=== PATIENT | male | born 1980 | race Caucasian/White ===

== ENCOUNTER 2020-06-08 14:31 | Emergency (ER) | payer OTHER, SELFPAY ==
--- NOTE | ~2020-06-08 | CT_ITS ---
EXAMINATION: CT abdomen pelvis wo con DATE: 06/08/2020 15:52 INDICATION: Hematuria. History kidney stones. TECHNIQUE: Computed tomography (CT) of the abdomen and pelvis was performed without intravenous contr ast. Automated exposure control and iterative reconstruction technique were employed. Exam dose: 182 .08 mGy-cm total exam DLP. COMPARISON: None. FINDINGS: The lung bases are clear of infiltrate or consolidation. Normal heart size. No pericardial or pleural effusion. Fat-containing left foramen of Bochdalek hernia. The liver, gallbladder, bile ducts, spleen, pancreas and pancreatic duct are unremarkable. Normal mor phology of the adrenal glands. No suspicious renal space-occupying mass lesion is evident on this limited noncontrast examination. There is a 3 mm left ureterovesical junction calculus with minimal left hydroureteronephrosis. No other urinary tract calculus or right hydroureteronephrosis. Normal caliber of the abdominal aorta. No intraperitoneal or retroperitoneal or pelvic mass lesion or adenopathy or ascites. The urinary bladder and prostate gland are unremarkable. No evidence of appendicitis. No bowel obstruction, bowel wall thickening, pneumatosis or intraperiton eal free air. Degenerative disc disease and posterior spurring at L5-S1. No suspicious osteolytic or osteoblastic l esions are noted. IMPRESSION: 3 mm left ureterovesical junction calculus with minimal left hydroureteronephrosis Reviewed, dictated and finalized at [facility]. Reviewed, dictated and finalized at [facility]. IMPRESSION: 3 mm left ureterovesical junction calculus with minimal left hydro ureteronephrosis
[2020-06-08 14:34] VITALS: BP 153/98; PULSE 82; RESP 18; TEMP 36.6; O2SAT 99
[2020-06-08 15:19] LABS: Basophils Absolute Auto 0.1 K/mm3 (0.0-0.1); Hematocrit 45.2 % (42.0-52.0); Hemoglobin 15.2 g/dL (14.0-18.0); Immature Granulocyte Absolute 0.01 K/mm3 (0.00-0.031); Immature Granulocyte Percent A 0.1 % (0-0.5); Lymphocytes Absolute Auto 2.31 K/mm3 (0.9-3.2); Lymphocytes Percent Auto 27.9 % (18.3-44.2); Mean Corpuscular HGB Conc 33.6 g/dl (32-36); Mean Corpuscular Hemoglobin 30.2 pg (26-34); Mean Corpuscular Volume 89.7 fl (80-100); Mean Platelet Volume 9.5 fl (7.4-10.4); Monocytes Absolute Auto 0.5 K/mm3 (0.1-0.6); Monocytes Percent Auto 6.4 % (2.6-8.5); Neutrophils Absolute Auto 5.3 K/mm3 (1.3-6.7); Neutrophils Percent Auto 64.6 % (45.5-73.1); Platelet Count Result 258 k/mm3 (150-375); Red Blood Count 5.04 M/mm3 (4.6-6.20); Red Cell Distribution Width 12.5 % (11.5-14.5); White Blood Count 8.3 K/mm3 (4.5-10.0)
[2020-06-08 15:29] LABS: Anion Gap 5 mmol/L (8-16); Blood Urea Nitrogen 12 mg/dL (9-20); Calcium 9.3 mg/dL (8.4-10.2); Carbon Dioxide 31 mmol/L (22-30); Chloride 103 mmol/L (98-107); Estimated CRCL calculation 93 ml/min; Estimated Glomerular Filt Rate > 60; Glucose 129 mg/dL (75-110); Potassium 3.4 mmol/L (3.4-5.0); Sodium 139 mmol/L (137-145)
[2020-06-08 16:14] LABS: Add Urine Microscopic? YES; Appearance Urine Cloudy (Clear); Bacteria Urine Trace /hpf; Bilirubin Urine Negative (Negative); Blood Urine 3+ (Negative); Color Urine Yellow (Yellow); Glucose Urine UA Negative (Negative); Ketones Urine Negative (Negative); Leukocyte Esterase Ur Negative LEU/UL (Negative); Mucus Urine Few /lpf; Nitrate Urine Negative (Negative); Protein Urine 2+ mg/dL (Negative); RBC Urine >75 /hpf (0-2); WBC Urine 0-3 /hpf
--- NOTE | 2020-06-08 16:26 | ED.MALEGU ---
HPI - Male Genitourinary General Chief complaint: Urogenital-Male Stated complaint: hematuria Time Seen by Provider: 06/08/20 14:46 History of Present Illness HPI Narrative: Patient is a 39-year-old male who presents ER with hematuria. Began abruptly today. No pain. No urinary frequency or urgency. Has history of kidney stones. Patient reports there is possible he could have sexual transmitted infection due to outside infidelity. He reports that it occurred back in December when he found out about it. He has not had any symptoms after that and is not having any testicular pain or penile discharge at this time. Patient denies any fevers chills or sweats/nausea/vomiting. Related Data Allergies Allergy/AdvReac Type Severity Reaction Status Date / Time No Known Allergies Allergy Verified 06/08/20 14:37 Review of Systems Review of Systems: All systems reviewed & are unremarkable except as noted in HPI and below Constitutional: Constitutional: Denies chills, Denies fever(s) and Denies weakness Respiratory: Respiratory: Denies cough, Denies dyspnea and Denies wheezing Gastrointestinal: Gastrointestinal: Denies abdominal pain, Denies nausea and Denies vomiting Genitourinary: Genitourinary: Reports hematuria, Denies dysuria, Denies penile discharge, Denies testicular pain and Denies urinary frequency PMFSH Past Medical History Medical History (Updated 06/08/20 @ 16:30 by Jose Hughes MD) Kidney stones Surgical History Surgical History (Updated 06/08/20 @ 16:28 by Jose Hughes MD) No history of previous surgery Social History Social History (Updated 06/08/20 @ 16:28 by Jose Hughes MD) Social History: Occasional EtOH. Gender identity (if verbalized by the patient): Male Exam Narrative: Exam Narrative: GENERAL: Well-appearing, well-nourished, and in no acute distress. HEAD: Normocephalic, atraumatic. CHEST: Clear to auscultation. No respiratory distress. HEART: Regular rate and rhythm. Normal peripheral pulses. ABDOMEN: Soft, nontender, nondistended, no CVA tenderness. EXTREMITIES: Normal range of motion. No edema. SKIN: Warm, dry, no rash. NEURO: Alert and oriented x3. PSYCH: Normal mood and affect. Course Course Emergency Course: Patient informed results. GC/chlamydia pending but unlikely to be positive given there is a source for the hematuria. Patient verbalized understanding and he would not receive this result until later. Discharge home with supportive medication despite him being asymptomatic at this time. Vital Signs Vital signs: Vital Signs Temperature 97.8 F 06/08/20 14:34 Pulse Rate 82 06/08/20 14:34 Respiratory Rate 18 06/08/20 14:34 Blood Pressure 153/98 H 06/08/20 14:34 Pulse Oximetry 99 06/08/20 14:34 Temperature 97.8 F 06/08/20 14:34 Pulse Rate 82 06/08/20 14:34 Respiratory Rate 18 06/08/20 14:34 Blood Pressure 153/98 H 06/08/20 14:34 Pulse Oximetry 99 06/08/20 14:34 MDM - Male Genitourinary Lab Data Result diagrams: 06/08/20 15:12 06/08/20 15:12 Labs: Lab Results 06/08/20 06/08/20 06/08/20 Range/Units 15:12 15:12 16:01 WBC 8.3 (4.5-10.0) K/mm3 RBC 5.04 (4.6-6.20) M/mm3 Hgb 15.2 (14.0-18.0) g/dL Hct 45.2 (42.0-52.0) % MCV 89.7 (80-100) fl MCH 30.2 (26-34) pg MCHC 33.6 (32-36) g/dl RDW 12.5 (11.5-14.5) % Plt Count 258 (150-375) k/mm3 MPV 9.5 (7.4-10.4) fl Immature Gran % (Auto) 0.1 (0-0.5) % Neut % (Auto) 64.6 (45.5-73.1) % Lymph % (Auto) 27.9 (18.3-44.2) % [place] % (Auto) 6.4 (2.6-8.5) % Eos % (Auto) 0.0 (0-4.4) % Baso % (Auto) 1.0 (0.2-1.2) % Lymph # (Auto) 2.31 (0.9-3.2) K/mm3 [place] # (Auto) 0.5 (0.1-0.6) K/mm3 Eos # (Auto) 0.0 (0-0.3) K/mm3 Baso # (Auto) 0.1 (0.0-0.1) K/mm3 Abs Immat Gran (auto) 0.01 (0.00-0.031) K/mm3 Absolute Neuts (auto) 5.3 (1.3-6.7) K/mm3 Absolu
[2020-06-08 16:47] VITALS: BP 132/78; PULSE 72; RESP 16; O2SAT 99
== END 2020-06-08 16:48 | disposition home or self-care (01) ==
PROVIDERS: Emergency Provider Emergency Medicine; PCP Family Medicine Adolescent Medicine
DX: N13.2 Hydronephrosis with renal and ureteral calculous obstruction (principal); Z87.442 Personal history of urinary calculi
CPT/HCPCS: 36415; 74176; 80048; 81001; 85025; 87491; 87591; 99284

== ENCOUNTER 2022-11-27 01:36 | Day surgery (SDC) | payer BC, SELFPAY ==
[2022-11-12 10:04] VITALS: BMI 26.6
[2022-11-27 08:40] VITALS: BP 133/92; PULSE 87; RESP 16; TEMP 36.2; O2SAT 100
[2022-11-27] MEDS: LACTATED RINGERS 1,000 ML 150 ML IV CONT (08:49)
--- NOTE | 2022-11-27 08:59 | WPDANESEPPF ---
Anes - Initial Pre Proc Eval Procedure: Operation Date: 11/27/22 09:30 Proposed Procedures p Colonoscopy - Adan Grant MD Date/Time: 11/27/22 08:59 Surgeon: Adan Grant MD Pre Op Diagnosis: Fam hx of other diseases of the digestive system Patient Data Age: 42 Gender: M Height: 1.73 m Weight: 77.6 kg Last Vital Signs Temp 97.2 F L 11/27/22 08:40 Pulse 87 11/27/22 08:40 Resp 16 11/27/22 08:40 BP 133/92 H 11/27/22 08:40 Pulse Ox 100 11/27/22 08:40 O2 Del Method Room Air 11/27/22 08:40 Allergies Allergy/AdvReac Type Severity Reaction Status Date / Time No Known Allergies Allergy Verified 11/27/22 08:39 Home Medications Medication Instructions Recorded Confirmed Type No Home Medications 10/27/22 11/27/22 History Patient hx anesthesia problems: none Family hx anesthesia problems: none Results Review: All pre-operative results and documents have been reviewed as part of the pre-operative evaluation. [facility] Past Medical History Medical History (Updated 10/27/22 @ 12:47 by Milagro Scherer APRN) Kidney stones Surgical History Surgical History (Updated 06/08/20 @ 16:28 by Jose Hughes MD) No history of previous surgery Family History Family History (Updated 10/27/22 @ 10:01 by Milagro Scherer APRN) Sibling Hypertension Sibling Ulcerative colitis Grandparent Carcinoma of colon Social History Social History (Updated 10/27/22 @ 10:02 by Milagro Scherer APRN) Social History: Occasional EtOH. Smoking status: Never smoker Alcohol intake: current Drinks per week: 2 Alcohol use details: ocassionally Substance use type: does not use Lack of Transportation: No Lack of Food: Sometimes True Current Housing: I Have Housing Concerned About Future Housing: No Difficulty Paying Gas/Electric Bills: No Difficulty Paying for Meds: No Currently Unemployed: No Education: Master's Degree or Higher Difficulty w/ Childcare or Family Care: No Living arrangements: alone Gender identity (if verbalized by the patient): Male Spiritual care concerns: No Anes - Eval Final PreProcedure Day of Procedure 11/27/22 08:59 Patient weight: normal Heart: regular rate and rhythm Lungs: clear to auscultation Airway: Mallampati scale class II Neurological: alert and oriented Last oral intake: >/= 8 hours ASA classification: II Emergent: no Anesthetic plan: proceed Anesthesia type and monitoring: general GIVS and standard monitoring Results Review: All pre-operative results and documents have been reviewed as part of the pre-operative evaluation. Informed Consent: The patient's anesthetic plan and its attendant risks and benefits were discussed with the patient/family/POA. Questions were solicited and answers provided to the satisfaction of the patient/family/POA.
--- NOTE | 2022-11-27 09:12 | PM.HPGS ---
History of Present Illness History of Present Illness Consent: Risks, benefits, and alternatives have been discussed and questions answered. Patient agrees to proceed with procedure. Chief complaint: Fam hx of other diseases of the digestive system Narrative: Driss Vega is a 42 year old male with alternating constipation and diarrhea for over a year, never had colonoscopy and brother diagnosed with UC Review of Systems Constitutional: Constitutional: Denies headache(s) and Denies weakness Eyes: Eyes: Denies blurry vision ENT: Reports Normal hearing present, Denies headache(s) and Denies neck pain Cardiovascular: Cardiovascular: Denies chest pain and Denies dyspnea Respiratory: Respiratory: Denies dyspnea Gastrointestinal: Gastrointestinal: Reports no additional gastrointestinal complaints Genitourinary: Genitourinary: Denies dysuria Musculoskeletal: Musculoskeletal: Denies neck pain Integumentary/Breasts: Skin/Breast: Denies dry skin Neurologic: Reports Normal hearing present, Denies headache(s) and Denies weakness Psychiatric: Psychiatric: Denies anxiety Endocrine: Endocrine: Denies change in body appearance Hematologic/Lymphatic: Hematologic/Lymphatic: Denies easy bleeding Allergic/Immunologic: Allergic/Immunologic: Denies urticaria PMFSH Past Medical History Medical History (Updated 11/27/22 @ 09:13 by Adan Grant MD) Alternating constipation and diarrhea Kidney stones Surgical History Surgical History (Updated 06/08/20 @ 16:28 by Jose Hughes MD) No history of previous surgery Family History Family History (Updated 10/27/22 @ 10:01 by Milagro Scherer APRN) Sibling Hypertension Sibling Ulcerative colitis Grandparent Carcinoma of colon Social History Social History (Updated 10/27/22 @ 10:02 by Milagro Scherer APRN) Social History: Occasional EtOH. Smoking status: Never smoker Alcohol intake: current Drinks per week: 2 Alcohol use details: ocassionally Substance use type: does not use Lack of Transportation: No Lack of Food: Sometimes True Current Housing: I Have Housing Concerned About Future Housing: No Difficulty Paying Gas/Electric Bills: No Difficulty Paying for Meds: No Currently Unemployed: No Education: Master's Degree or Higher Difficulty w/ Childcare or Family Care: No Living arrangements: alone Gender identity (if verbalized by the patient): Male Spiritual care concerns: No Meds Home Medications and Allergies Home Medications Medication Instructions Recorded Confirmed Type No Home Medications 10/27/22 11/27/22 History Allergies Allergy/AdvReac Type Severity Reaction Status Date / Time No Known Allergies Allergy Verified 11/27/22 08:39 Vital Signs Vital Signs - 24 hr 11/27/22 08:40 Temperature 97.2 F L Pulse Rate 87 Respiratory Rate 16 Blood Pressure 133/92 H Pulse Oximetry 100 Oxygen Delivery Room Air Exam Const: General: comfortable and no acute distress HENMT: Face/Nose/Sinus: Normal nares present Eyes: General: appearance normal, both eyes and all related structures Neck: Neck: no JVD Resp: Auscultation: clear to auscultation bilaterally Cardio: Rate: regular rate Rhythm: regular rhythm GI: Inspection: non-distended GI Palp: Yes Soft to palpation Skin: General skin exam: normal color Neuro: General: gait normal Speech: normal speech Extrem: General: normal to inspection Psych: Mental Status: mental status grossly normal Assessment and Plan Assessment and plan (1) Alternating constipation and diarrhea: Code(s): R19.8 - Other specified symptoms and signs involving the digestive system and abdomen Status: Acute Assessment and Plan: colonoscopy (2) Family history of ulcerative colitis: Code(s): Z83.79 - Family history of other diseases of the digestive system Status: Acute
[2022-11-27 09:36] VITALS: BP 102/71; PULSE 88; RESP 14; O2SAT 97
[2022-11-27 09:46] VITALS: BP 119/78; PULSE 85; RESP 12; O2SAT 99
[2022-11-27 09:56] VITALS: BP 118/77; PULSE 76; RESP 16; O2SAT 99
== END 2022-11-27 10:04 | disposition home or self-care (01) ==
PROVIDERS: PCP Family Medicine Adolescent Medicine; Visit Provider Internal Medicine Gastroenterology
PROC: 0DJD8ZZ Inspection of Lower Intestinal Tract, Via Natural or Artificial Opening Endoscopic (ICD-10-PCS; CPT 45378; principal; 2022-11-27 09:30)
DX: R19.7 Diarrhea, unspecified (principal); K59.00 Constipation, unspecified; D12.2 Benign neoplasm of ascending colon; Z83.79 Family history of other diseases of the digestive system
CPT/HCPCS: 45385; 45380; 88305; J2704; J7120